=== PATIENT | female | born 1960 | race Caucasian/White ===

== ENCOUNTER 2017-01-09 11:23 | Emergency (ER) | payer OTHER ==
[~2017-01-09] VITALS: Ht 157.5 cm; Wt 70.0 kg
[2017-01-09 11:29] VITALS: Ht 157.5 cm; Wt 70.0 kg
[2017-01-09] MEDS ORDERED: SOD CHLORIDE 0.9% 1,000 ML IV STA (11:35)
[2017-01-09] MEDS ORDERED: ONDANSETRON 4 MG INJ IV STA (11:35)
[2017-01-09] MEDS ORDERED: MECLIZINE 12.5 MG TAB PO ONE (12:00)
[2017-01-09 12:04] LABS: ADD SCAN DIFF NO
--- NOTE | 2017-01-09 12:09 | RADRPT ---
PROCEDURE: XR Chest. CLINICAL INDICATION: Shortness of breath. TECHNIQUE: A single portable view of the chest was obtained. COMPARISON: None FINDINGS: The cardiomediastinal silhouette is within normal limits. The lungs and pleural spaces are clear. The soft tissues and osseous structures are unremarkable. IMPRESSION: No acute cardiopulmonary disease. RPTAT: HPNM Physician Shandra Date Time Electronically viewed and signed by Jasson Jarquin Physician on 01/09/2017 12:09 /
[2017-01-09 12:11] LABS: BASOPHILS % 0.4 % (0.0-2.0); EOSINOPHILS % 0.2 % (0.0-7.0); HEMATOCRIT 42.5 % (37.0-47.0); HEMOGLOBIN 14.3 g/dl (12.0-16.0); LYMPHOCYTES % 11.3 % (15.0-51.0); MEAN CORPUSCULAR HEMOGLOBIN 31.9 pg (29.0-33.0); MEAN CORPUSCULAR HGB CONC 33.6 g/dl (32.0-37.0); MEAN CORPUSCULAR VOLUME 94.9 fl (82.0-101.0); MEAN PLATELET VOLUME 10.7 fl (7.4-10.4); MONOCYTE # 0.3 10^3/ul (0.3-0.9); MONOCYTES % 3.1 % (0.0-11.0); NEUTROPHIL # 7.5 10^3/ul (1.6-7.5); NEUTROPHILS % 84.4 % (39.0-77.0); PLATELET COUNT 232 10^3/UL (140-415); RED BLOOD COUNT 4.48 10^6/ul (4.20-5.40); RED CELL DISTRIBUTION WIDTH 13.2 % (11.5-14.5); WHITE BLOOD COUNT 8.9 10^3/ul (4.8-10.8)
--- NOTE | 2017-01-09 12:11 | RADRPT ---
PROCEDURE: CT Brain without contrast. CLINICAL INDICATION: Nausea vomiting headaches and dizziness. Possible stroke. TECHNIQUE: CT scan of the brain was performed on a multidetector high-resolution CT scan. Axial im aging was obtained of the brain without contrast administration. Coronal and sagittal reformatted i mages were obtained from the axial source images. Standard CT scan of the head without contrast prot ocols were performed. The total exam CTDI equals 44.77 mGy and the total exam DLP equals 720.23 mGy-cm. One or more of the following dose reduction techniques were used: - Automated exposure control. - Adjustment of the mA and/or kV according to patient size. Use of iterative reconstruction technique. COMPARISON: None. FINDINGS: The ventricular system is normal in size without midline shift. There is prominence of the peripher al CSF spaces consistent with mild generalized cerebral and mild cerebellar volume loss. Negative f or intracranial masses or hemorrhages. The baker-white matter junction is unremarkable. The bones a nd calvarium are intact. The paranasal sinuses and mastoids are unremarkable. IMPRESSION: 1. No evidence of intracranial masses hemorrhages or midline shift. 2. Mild generalized cerebral and moderate generalized cerebellar volume loss. RPTAT:AAJJ Physician Baldemar Date Time Electronically viewed and signed by Physician Baldemar on 01/09/2017 12:11 BM/
[2017-01-09 12:26] LABS: ANION GAP 12 (8-16); BLOOD UREA NITROGEN 19 mg/dl (7-20); CALCIUM 9.4 mg/dl (8.4-10.2); CARBON DIOXIDE 28 mmol/L (21-31); CHLORIDE 106 mmol/L (97-110); CREATININE 0.76 mg/dl (0.44-1.00); GLUCOSE 152 mg/dl (70-220); SODIUM 142 mmol/L (135-144)
[2017-01-09] MEDS ORDERED: CYCL-319 PO (12:50)
[2017-01-09 12:53] LABS: TROPONIN-I < 0.012 ng/ml (0.00-0.12)
[2017-01-09] MEDS ORDERED: MECL12.574 PO (13:11)
[2017-01-09] MEDS ORDERED: ONDA4TAB14 PO (13:11)
--- NOTE | 2017-01-09 13:13 | ERD ---
ER Documentation Chief Complaint Date/Time DATE: 01/09/17 TIME: 13:12 Chief Complaint BIBA FOR NAUSEA,VOMITING.HEADACHE STARTED YESTERDAY HPI Patient is a 56-year-old female with anxiety who presents with dizziness. The patient was brought in by ambulance. She came from home. She feels like her blood pressure is low but she does get frequent low blood pressure. She feels like the room is spinning. The symptoms started today. She had vomiting and diarrhea. She has headache and abdominal pain. She denies syncope. She has had no fevers. She tried Pepto-Bismol. Upon review of old medical records this is the patient's first visit to the emergency department. Her primary doctor is Dr. Maki. ROS All systems reviewed and are negative except as per history of present illness. Medications Home Meds Active Scripts Ondansetron (Ondansetron Odt) 4 Mg Tab.rapdis, 4 MG PO Q6H Y for NAUSEA AND/OR VOMITING, #10 TAB Prov:RASHAD NOVAK MD 01/09/17 Meclizine Hcl* (Antivert*) 12.5 Mg Tab, 25 MG PO Q6H Y for DIZZINESS, #20 TAB Prov:RASHAD NOVAK MD 01/09/17 Reported Medications Cyclobenzaprine Hcl* (Cyclobenzaprine Hcl*) 10 Mg Tablet, 10 MG PO QHS Y for MUSCLE SPASMS, #60 TAB 01/09/17 Allergies Allergies: Coded Allergies: No Known Allergy (Unverified , 01/09/17) PMhx/Soc History of Surgery: No Anesthesia Reaction: No Hx Neurological Disorder: No Hx Respiratory Disorders: No Hx Cardiac Disorders: Yes (HYPOTENSION,HIGH CHOLESTEROL) Hx Psychiatric Problems: No Hx Miscellaneous Medical Probl: No Hx Alcohol Use: No Hx Substance Use: No Hx Tobacco Use: No Smoking Status: Never smoker FmHx Family History: diabetes Physical Exam Vitals Vital Signs Date Time Temp Pulse Resp B/P Pulse Ox O2 Delivery O2 Flow Rate FiO2 01/09/17 11:29 98.2 77 18 132/72 98 Physical Exam Const: No acute distress Head: Atraumatic Eyes: Normal Conjunctiva ENT: Normal External Ears, Nose and Mouth. Neck: Full range of motion..~ No meningismus. Resp: Clear to auscultation bilaterally Cardio: Regular rate and rhythm, no murmurs Abd: Soft, non tender, non distended. Normal bowel sounds Skin: No petechiae or rashes Back: No midline or flank tenderness Ext: No cyanosis, or edema Neur: Awake and alert, cranial nerves II through XII intact, strength is 5 out of 5 in all 4 extremities, no slurred speech Psych: Normal Mood and Affect Result Diagram: 01/09/17 1145 01/09/17 1145 Results 24 hrs Laboratory Tests Test 01/09/17 11:45 01/09/17 12:35 White Blood Count 8.910^3/ul Red Blood Count 4.4810^6/ul Hemoglobin 14.3g/dl Hematocrit 42.5% Mean Corpuscular Volume 94.9fl Mean Corpuscular Hemoglobin 31.9pg Mean Corpuscular Hemoglobin Concent 33.6g/dl Red Cell Distribution Width 13.2% Platelet Count 12526^3/UL Mean Platelet Volume 10.7fl Neutrophils % 84.4% Lymphocytes % 11.3% Monocytes % 3.1% Eosinophils % 0.2% Basophils % 0.4% Nucleated Red Blood Cells % 0.0/100WBC Neutrophils # 7.510^3/ul Lymphocytes # 1.010^3/ul Monocytes # 0.310^3/ul Eosinophils # 0.010^3/ul Basophils # 0.010^3/ul Nucleated Red Blood Cells # 0.010^3/ul Prothrombin Time 12.3Sec Prothrombin Time Ratio 1.0 INR International Normalized Ratio 0.91 Activated Partial Thromboplast Time 24.0Sec Sodium Level 142mmol/L Potassium Level 4.0mmol/L Chloride Level 106mmol/L Carbon Dioxide Level 28mmol/L Anion Gap 12 Blood Urea Nitrogen 19mg/dl Creatinine 0.76mg/dl Glucose Level 152mg/dl Bedside Glucose 149mg/dL Hemoglobin A1c 5.7% Calcium Level 9.4mg/dl Troponin I < 0.012ng/ml Urine Color LT. YELLOW Urine Clarity CLEAR Urine pH 6.5 Urine Specific [place] 1.010 Urine Ketones 15 Urine Nitrite NEGATIVE Urine Bilirubin NEGATIVE Urine Urobilinogen 0.2 E.U./dL Urine Leukocyte Esterase NEGATIVE Urine Hemoglobin NEGATIVE Urine Glucose NEGATIVE% Urine Total Protein NEGATIVE Urine Opiates Screen NEGATIVE Urine Barbiturates NEGATIVE Urine Amphetamines Screen NEGATIVE Urine Benzodiazepines Screen NEGATIVE Urine Cocaine Screen NEGATIVE Urine Cannabinoids NEGATIVE Current Medications Medications (Trade) Dose Ordered Sig/Omid Route PRN Reason Start Time Stop Time Status Last Admin Dose Admin Sodium Chloride (NS) 1,000 ml @ 1,000 mls/hr Q1H STAT IV 01/09/17 11:35 01/09/17 12:34 DC 01/09/17 11:43 Ondansetron HCl (Zofran Inj) 4 mg ONCE STAT IV 01/09/17 11:35 01/09/17 11:36 DC 01/09/17 11:42 Meclizine HCl (Antivert) 25 mg ONCE ONCE PO 01/09/17 12:00 01/09/17 12:01 DC 01/09/17 11:42 Procedures/MDM EKG read by me: Rate/Rhythm: Regular rate and rhythm at a rate of 70 Intervals: Normal Impression: No evidence of ischemia or arrhythmia CT brain negative for intracranial hemorrhage or brain mass per radiology. Chest x-ray negative per radiology. Patient is a 56-year-old female with anxiety who presents with dizziness. She also had vomiting and diarrhea. I believe this is vertigo versus dehydration. The patient was given fluids as well as meclizine and Zofran. She feels better and I believe outpatient management is appropriate. I doubt stroke, intrarenal mass, or intracranial hemorrhage. The patient will need to follow-up closely with her primary doctor within 24-48 hours and can return sooner if symptoms worsen. The patient understands the plan is okay for discharge at this time. She was given copies of her laboratory studies and imaging test prior to discharge. Departure Diagnosis: Primary Impression: Dizziness Additional Impression: Nausea and vomiting Vomiting type: unspecified Vomiting Intractability: non-intractable Qualified Code: R11.2 - Non-intractable vomiting with nausea, unspecified vomiting type Condition: Fair Patient Instructions: Nausea and Vomiting-Adult, Dizziness, Unk Cause Referrals: Dr. Maki Additional Instructions: Llame al doctor MAANA y jo temitope ALEX PARA DENTRO DE 1-2 LOERA.Dgale a la secretaria que nosotros le instruimos hacer esta alex.Avise o llame si urbano condicin se empeora antes de la alex. Regresa aqui si peor o no mejor. RASHAD NOVAK MD Jan 09, 2017 13:13
[2017-01-09 13:25] LABS: ADD UMIC NO; URINE BILIRUBIN (Dip) NEGATIVE (NEGATIVE); URINE BLOOD (Dip) NEGATIVE (NEGATIVE); URINE COLOR LT. YELLOW (YELLOW); URINE GLUCOSE (Dip) NEGATIVE (NEGATIVE); URINE KETONES (Dip) 15 (NEGATIVE); URINE LEUKOCYTE ESTERASE (Dip) NEGATIVE (NEGATIVE); URINE NITRITE (Dip) NEGATIVE (NEGATIVE); URINE TOTAL PROTEIN (Dip) NEGATIVE (NEGATIVE); URINE UROBILINOGEN (Dip) 0.2 E.U./dL (0.1-1.0)
[2017-01-09 13:40] LABS: BARBITURATES NEGATIVE (NEGATIVE); BENZODIAZEPINES NEGATIVE (NEGATIVE); CANNABINOIDS NEGATIVE (NEGATIVE); COCAINE NEGATIVE (NEGATIVE); OPIATES NEGATIVE (NEGATIVE)
[2017-01-09 13:47] LABS: INR 0.91; PROTIME 12.3 Sec (12.2-14.2)
== END 2017-01-09 14:30 | disposition home or self-care (01) ==
LOC: E/R 11:23
DX: R42 Dizziness and giddiness (principal); R06.02 Shortness of breath; R40.2142 Coma scale, eyes open, spontaneous, at arrival to emergency department; R40.2252 Coma scale, best verbal response, oriented, at arrival to emergency department; R40.2362 Coma scale, best motor response, obeys commands, at arrival to emergency department
CPT/HCPCS: 36415; 70450; 71010; 80048; 80307; 81003; 82962; 83036; 84484; 85025; 85610; 85730; 96374; J2405; J7030; Z7502; Z7610; 93005